=== PATIENT | female | born 1995 | race African-American/Black ===

== ENCOUNTER 2021-06-01 13:18 | Emergency (ER) | payer MEDICAID ==
[~2021-06-01] VITALS: Ht 165.1 cm; Wt 81.8 kg
[2021-06-01 13:20] VITALS: BP 144/94
== END 2021-06-01 15:29 | disposition left against medical advice (07) ==
LOC: EMS 13:24
DX: R10.9 Unspecified abdominal pain (principal); Z53.21 Procedure and treatment not carried out due to patient leaving prior to being seen by health care provider